=== PATIENT | male | born 1995 | race Caucasian/White ===

== ENCOUNTER 2021-11-18 16:01 | Outpatient (CLI) | payer OTHER, SELFPAY ==
--- NOTE | ~2021-11-18 | MR_ITS ---
EXAMINATION: MR knee RT wo con DATE: 11/18/2021 17:16 INDICATION: Unspecified injury of right lower leg, initial encounter. Medial right knee pain. TECHNIQUE: Magnetic resonance imaging (MRI) of the right knee was performed without intravenous contr ast. Sequences included axial PD-weighted FS FSE, coronal PD-weighted FSE and PD-weighted FS FSE, sag ittal PD-weighted FSE, and sagittal T2-weighted FS FSE. COMPARISON: Right knee MRI 03/13/2014 FINDINGS: Medial compartment: There is a complex tear involving body and posterior horn of medial meniscus with extrusion of the landen dy segment. There is shallow partial-thickness cartilage loss of tibial condyle and femoral condyle. Tiny osteophytes are noted. Lateral compartment: Lateral meniscus is normal. There is shallow partial-thickness cartilage loss of femoral condyle, wor st at the posterior articular surface. There is cartilage surface irregularity of tibial condyle. Tin y osteophytes are noted. Patellofemoral compartment: Patellar cartilage is normal. Trochlear cartilage is normal. There are tiny osteophytes. Ligaments and tendons: There is a complete tear of anterior cruciate ligament. Posterior cruciate ligament is normal. There are changes of prior sprains of medial collateral ligament and fibular collateral ligament characteri zed by thickening and increased signal intensity proximally. There is mild patellar tendinopathy. Fluid: There is a small knee joint effusion. There is a small Peralta's cyst. IMPRESSION: 1. Complete tear of anterior cruciate ligament. 2. Mild chondrosis of medial and lateral compartments. 3. Complex tear of medial meniscus. 4. Small knee joint effusion. 5. Small Peralta's cyst. Reviewed, dictated and finalized at location A.
== END 2021-11-18 16:02 ==
PROVIDERS: Visit Provider Orthopaedic Surgery
DX: M25.462 Effusion, left knee (principal); M25.461 Effusion, right knee; M71.21 Synovial cyst of popliteal space [Baker], right knee; S83.231A Complex tear of medial meniscus, current injury, right knee, initial encounter; S83.511A Sprain of anterior cruciate ligament of right knee, initial encounter; X58.XXXA Exposure to other specified factors, initial encounter
CPT/HCPCS: 73721

== ENCOUNTER 2022-05-03 01:02 | Day surgery (SDC) | payer OTHER, SELFPAY ==
[2022-03-17 15:50] VITALS: BMI 36.5
--- NOTE | 2022-03-17 16:04 | PC.NURSE ---
Report to the Outpatient Waiting Room, entrance under the green pavilion located off [facility], at time 0830 on date 03/30/22. OR Time: 1030. Time changes happen often and if your time is changed the preop area will call you the afternoon before. - You and your visitor will be asked to self-screen and do not enter if you have any COVID symptoms. - Only one visitor and NO children visitors are allowed at this time. - The patient visitor is requested to leave or wait in car when not with patient due to restrictions. - A mask is required within the hospital. Patients may have clear liquids (water, carbonated beverages, clear teas, apple juice) until 3 hours prior to surgery with a maximum of 20 ounces. - No food from midnight until time of surgery Take the following medications with a SIP of water the morning of surgery: LORAZEPAM IF NEEDED Medications to discontinue per physician: N/A Date to take last dose: N/A Please no make-up, nail malay, hairspray, perfume, deodorant, or body powder the day of surgery. No jewelry (including any body piercings) or valuables the day of surgery, leave them at home. Please take a shower or bath the night before, or the morning of, surgery with an antibacterial soap. Wear comfortable, loose fitting clothing. - Jewelry must be removed prior to entering the operating room. Rings and piercings that are not removed may be cut off. - The hospital will not accept responsibility for valuables. - Please leave all valuables, including medications, at home the day of surgery. If you are going home after surgery, a licensed [employer] driver must drive you home. - NO public transportation without another adult. - We recommend that an adult stay with you for 24 hours following discharge. - We also recommend that you do not drive, make important decision, drink alcoholic beverages, or take any drugs that were not prescribed by your health care provider for at least 24 hours after your discharge time. Follow any additional instructions given to you from your surgeon. If you or anyone in your household have experienced Covid symptoms in the past week, please notify your surgeon or the nurse liaison at the phone number below for possible testing. Telephone instructions given to PT - MARGARET CERDA and asked if any additional questions and then verbalized understanding. Patient advised to call surgeon office or pre surgery nurse liaison [phone] if any additional questions.
[2022-04-28 15:13] VITALS: BMI 36.5
--- NOTE | 2022-04-28 15:17 | PC.NURSE ---
Report to the Outpatient Waiting Room, entrance under the green pavilion located off [facility], at time 0830 on date 05/03/22. Planned Procedure Time: 1030. Time changes happen often and if your time is changed the preop area will call you the afternoon before. - You and your visitor will be asked to self-screen and do not enter if you have any COVID symptoms. - We encourage only one visitor and NO visitors under age 16 are allowed at this time. Your visitor will receive communication by the phone number that is given day of service. - The patient visitor is requested to social distance or may leave the building when not with patient due to restrictions. - A mask is OPTIONAL within the hospital. Patients may have clear liquids (water, carbonated beverages, clear teas, apple juice) until 3 hours prior to surgery with a maximum of 20 ounces. - No food from midnight until time of surgery Take the following medications with a SIP of water the morning of surgery: ATIVAN IF NEEDED, FLUOXETINE Medications to discontinue per physician: N/A Date to take last dose: N/A Please no make-up, nail australian, hairspray, perfume, deodorant, or body powder the day of surgery. No jewelry (including any body piercings) or valuables the day of surgery, leave them at home. Please take a shower or bath the night before, or the morning of, surgery with an antibacterial soap. Wear comfortable, loose fitting clothing. - Jewelry must be removed prior to entering the operating room. Rings and piercings that are not removed may be cut off. - The hospital will not accept responsibility for valuables. - Please leave all valuables, including medications, at home the day of surgery. If you are going home after surgery, a licensed patient transportation driver must drive you home. - NO public transportation without another adult. - We recommend that an adult stay with you for 24 hours following discharge. - We also recommend that you do not drive, make important decision, drink alcoholic beverages, or take any drugs that were not prescribed by your health care provider for at least 24 hours after your discharge time. Follow any additional instructions given to you from your surgeon. If you or anyone in your household have experienced Covid symptoms in the past week, please notify your surgeon or the nurse liaison at the phone number below for possible testing. Telephone instructions given to PT - MARGARET CERDA and asked if any additional questions and then verbalized understanding. Patient advised to call surgeon office or pre surgery nurse liaison [phone] if any additional questions.
[2022-05-03] VITALS (9 sets, daily range): BP systolic 139–164; BP diastolic 69–91; PULSE 84–121; RESP 12–20; TEMP 36.7–37.3; O2SAT 92–100
--- NOTE | 2022-05-03 07:15 | WPDHPUPDATE1 ---
History and Physical Update Update Date/Time: 05/03/22 07:15 History and Physical has been reviewed, including an updated exam of the patient. There are NO changes in the patient's condition. Risks, benefits, and alternatives have been discussed and questions answered. Patient agrees to proceed with procedure.
[2022-05-03] MEDS: LACTATED RINGERS 1,000 ML 30 ML IV CONT ×2 (08:50→14:13)
[2022-05-03] MEDS: CELECOXIB 200 MG CAPSULE PO (08:50)
[2022-05-03] MEDS: ACETAMINOPHEN 500 MG TABLET 1000 MG PO (08:50)
--- NOTE | 2022-05-03 09:29 | WPDANESEPPF ---
Anes - Initial Pre Proc Eval Procedure: Operation Date: 05/03/22 10:30 Proposed Procedures p Right Knee Anterior Cruciate Ligament Reconstruction, Possible Medial Meniscus Repair - Alf Flowers MD Date/Time: 05/03/22 09:29 Surgeon: Alf Flowers MD Pre Op Diagnosis: Rt Knee ACL Rupture, Medial Meniscus tear Patient Data Age: 26 Gender: M Height: 1.73 m Weight: 113.7 kg Last Vital Signs Temp 36.7 C 05/03/22 08:52 Pulse 84 05/03/22 08:52 Resp 14 05/03/22 08:52 BP 148/85 H 05/03/22 08:52 Pulse Ox 100 05/03/22 08:52 O2 Del Method Room Air 05/03/22 08:52 Allergies Allergy/AdvReac Type Severity Reaction Status Date / Time No Known Drug Allergies Allergy Unknown Unknown Verified 05/03/22 08:58 Home Medications Medication Instructions Recorded Confirmed Type lisinopril 20 mg tablet 20 mg PO DAILY 10/14/21 04/28/22 History lorazepam 1 mg tablet (Ativan) 1 mg PO DAILY PRN Anxiety 10/14/21 04/28/22 History chlorhexidine gluconate 4 % 1 applic topical ONCE #237 mL 04/12/22 04/28/22 Rx topical liquid (Hibiclens) fluoxetine 20 mg capsule 20 mg PO DAILY 04/28/22 04/28/22 History Patient hx anesthesia problems: none Family hx anesthesia problems: none Results Review: All pre-operative results and documents have been reviewed as part of the pre-operative evaluation. [facility] Past Medical History Medical History (Updated 05/03/22 @ 09:30 by Hong Acuna MD) ACL tear HTN (hypertension) Knee Injury Medial meniscus tear Obesity Surgical History Surgical History Hx of arthroscopy of right knee 2014 Family History Family History Other Diabetes mellitus Family history of arthritis Hypertension Social History Social History Smoking status: Never smoker Alcohol intake: current Drinks per week: 5 Substance use: never Substance use type: does not use Living arrangements: with family Additional occupation/education comments: [employer] Gender identity (if verbalized by the patient): Male Spiritual care concerns: No Anes - Eval Final PreProcedure Day of Procedure 05/03/22 09:29 Patient weight: obese Heart: regular rate and rhythm Lungs: clear to auscultation Airway: Mallampati scale class 1 Neurological: alert and oriented Last oral intake: >/= 8 hours ASA classification: II Emergent: no Anesthetic plan: proceed Anesthesia type and monitoring: general LMA and standard monitoring Results Review: All pre-operative results and documents have been reviewed as part of the pre-operative evaluation. Informed Consent: The patient's anesthetic plan and its attendant risks and benefits were discussed with the patient/family/POA. Questions were solicited and answers provided to the satisfaction of the patient/family/POA.
--- NOTE | 2022-05-03 10:20 | PM.IMHP ---
H&P: HPI History of Present Illness Date/Time: 05/03/22 10:20 Chief Complaint: Pt presents with Right knee pain that occurred when he was ascending a set of stairs, at work, and tripped, twisting his knee. DOI 09/24/2021 ([id number])He went to the ER and underwent xray and a CT. He was then dx w/ a slight lateral subluxation of the patella. He was placed in an immobilizer and instructed to remain NWB w/ crutches, which he has complied with. There is an effusion present at the anterior right knee. Diffuse pain present. He is taking OTC medication for his pain. MRI completed 11/18/21. Pt is here to discuss Right ACL repair with poss medial meniscus repair on 03/30/[address] Flowers. 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 [employer] Date of injury/condition: 09/24/21 Current symptoms: Reports catching, instability, stiffness and excessive kneecap motion Location: anterior Character: constant and worsens w/ weight bearing Onset: 1-3 months Exacerbated by: direct pressure, weight bearing, kneeling, squatting, stairs, running, rotational activities and prolonged activity Previous treatments: Anti-inflammatory meds: right, Braces: right, Crutches: right, Ice: right and Elevation: right Improved by treatment/surgery: too soon to tell Review of Systems Review of Systems: All systems reviewed & are unremarkable except as noted in HPI and below PMFSH Past Medical History Medical History ACL tear HTN (hypertension) Knee Injury Medial meniscus tear Obesity Surgical History Surgical History Hx of arthroscopy of right knee 2013 Family History Family History Other Diabetes mellitus Family history of arthritis Hypertension Social History Social History Smoking status: Never smoker Alcohol intake: current Drinks per week: 5 Substance use: never Substance use type: does not use Living arrangements: with family Additional occupation/education comments: [employer] Gender identity (if verbalized by the patient): Male Spiritual care concerns: No Meds Home Medications and Allergies Home Medications Medication Instructions Recorded Confirmed Type lisinopril 20 mg tablet 20 mg PO DAILY 10/14/21 04/28/22 History lorazepam 1 mg tablet (Ativan) 1 mg PO DAILY PRN Anxiety 10/14/21 04/28/22 History chlorhexidine gluconate 4 % 1 applic topical ONCE #237 mL 04/12/22 04/28/22 Rx topical liquid (Hibiclens) fluoxetine 20 mg capsule 20 mg PO DAILY 04/28/22 04/28/22 History Allergies Allergy/AdvReac Type Severity Reaction Status Date / Time No Known Drug Allergies Allergy Unknown Unknown Verified 05/03/22 08:58 Vital Signs Vital Signs - 24 hr 05/03/22 08:52 Temperature 36.7 C Pulse Rate 84 Respiratory Rate 14 Blood Pressure 148/85 H Pulse Oximetry 100 Oxygen Delivery Room Air Exam Const: General: cooperative, healthy appearing, comfortable, no acute distress and well developed HENMT: Head: normal to inspection and No palpable skull fracture present Eyes: General: appearance normal, both eyes and all related structures Neck: Neck: normal visual inspection and full ROM Chest: Chest palpation & inspection: normal inspection of the chest Resp: Auscultation: clear to auscultation bilaterally Cardio: Rate: regular rate Heart sounds: S1 normal heart sound present and S2 normal heart sound present GI: GI Palp: Yes Soft to palpation and No Tenderness to palpation present (GI) Skin: General skin exam: normal color and no rashes or lesions noted Extrem: Right lower extremity: knee Details: abnormal to inspection, tenderness, swelling, abnormal ROM Details: pain with active ROM during and pain with passive ROM during, knee ligament exam abnormal Details: anterior drawer test normal Details: laxit
[2022-05-03] MEDS: ceFAZolin 2 GM/D5W 50 ML 2 GM/50 ML BAG IVPB (10:55)
--- NOTE | 2022-05-03 13:09 | SUR.OPER ---
ARTHREX IMPLANT RIGHT KNEE SECONDARY FIXATION BIOCOMPOSITE SWIVELOCK EXP 2025-08-30, FAST THREAD BIOCOMPOSITE INTERFERENCE SCREW [id number] EXP 2025-10-30 LOT [id number]
--- NOTE | 2022-05-03 13:25 | SUR.OPER ---
RIGHT KNEE BIOCOMPOSITE SWIVEL LOCK c WITH FIBERWIRE 2025-08-02 LOT [id number] IMPLANT IN. SECONDARY FIXATIN WITH BIOCOMPOSITE SWIVELOCK #[id number] WASTED
[2022-05-03] MEDS: BUPIVACAINE HCL 0.5% PF 30 ML VIAL INFILTRATE (13:43)
--- NOTE | 2022-05-03 14:25 | P.OP_ITS ---
Procedure Note - Detailed Date of Procedure 05/03/22 Pre-op Diagnosis Rt Knee ACL Rupture, Medial Meniscus tear Post-op Diagnosis Same Procedure Performed LEFT ACL RECONSTRUCTION Surgeon Alf Flowers MD Anesthesia General Description of Procedure PATIENT WAS TAKEN TO THE OR. GENERAL ANESTHESIA WAS INDUCED. THE RIGHT KNEE WAS TAKEN THROUGH A RANGE OF MOTION AND A PIVOT SHIFT TEST WAS PREFORMED AND THIS WAS POSITIVE. A LACHMANS TEST AND ANTERIOR DRAWER TESTS WERE ALSO PREFORMED AND BOTH SHOWED LAXITY OF THE ACL. THE RIGHT LEG WAS PREPPED AND DRAPED STERILE. TROCARS WERE PLACED IN THE USUAL FASHION. CAMERA WAS INTRODUCED. THERE WAS NO CHONDROMALACIA TO THE PATELLA FEMORAL JOINT. THE MEDIAL COMPARTMENT SHOWED MILD CHONDROMALACIA TO THE MED FEMORAL CONDYLE. THER WAS A COMPLEX TEAR TO THE MEDIAL MENISCUS. A MEDIAL PORTAL WAS ESTABLISHED. THE MEDIAL MENISCUS TEAR WAS NOT REPAIRABLE. THE TEAR WAS RESECTED DOWN TO A SMOOTH BASE. ABOUT 20% OF THE MENISCUS WAS REMOVED. NEXT THE ACL WAS IDENTIFIED AND FOUND TO BE COMPLETELY TORN. THE LATERAL MENISCUS WAS NOT TORN. THE LATERAL COMPARTMENT HAD NO CHONDROMALACIA. THE ACL REMNANTS WERE THEN THEN DEBRIDED UNTIL THE PCL WAS IDENTIFIED AND THE SUPERIOR LATERAL NOTCH WAS IDENTIFIED. A NOTCH PLASTY WAS PREFORMED UNTIL THE OVER THE TOP POSITION WAS SEEN. A MEDIAL INCISION WAS MADE MEDIAL TO THE TIBIAL TUBERCLE AND DISSECTION CONTINUED DOWN TO BONE. A TIBIAL ACL GUIDE WAS PLACE UP AGAINST THE PCL AND WAS SET AT 55 DEG POSITION. A GUIDE PIN WAS DRILLED THROUGH THE GUIDE EXITING JUST ANTERIOR TO THE PCL STUMP. A 10 MM TIBIAL TUNNEL WAS DRILLED. A #7 BACK WALL GUIDE WAS PLACED OVER THE GUIDE PIN AT THE 11 O'CLOCK POSITION ON THE FEMUR. A 10 MM FEMORAL TUNNEL WAS DRILLED TO 25 MM. AN ALLOGRAFT ATTACHED TO A TIGHT ROPE SYSTEM. THE ALLOGRAFT WAS PASSED THROUGH THE TIBIAL AND FEMORAL TUNNELS. THE TIGHT ROPE WAS THEN TIGHTENED AND THE ENDO BUTTON WAS SECURED OVER THE SUPERIOR LATERAL FEMORAL CORTEX. WITH THE KNEE AT 30 DEG OF FLEXION AND TENSION ON THE TIBIAL SIDE OF THE ALLOGRAFT, A 25 MM BY 10 MM TISSUE INTERFERENCE SCREW WAS PLACED IN THE TIBIAL TUNNEL OVER A GUIDE WIRE. THE SCREW HAD AN EXCELLENT BITE. THE KNEE WAS TAKEN THROUGH A RANGE OF MOTION AND THE ACL WAS VERY STABLE. A SWIVEL LOCK SYSTEM WAS THEN PLACED ADJACENT TO THE TIBIAL TUNNEL A BACKUP TO SECURING THE GRAFT. A DIRECT VISUALIZED ANTERIOR DRAWER TEST PREFORMED AND THE GRAFT WAS STABLE. THE PATELLA TRACKED WITHOUT TILT. THE INSTRUMENTS WERE REMOVED AFTER THOROUGH IRRIGATION OF THE KNEE JOINT. THE WOUNDS WERE WASHED. THE TROCAR WOUNDS WERE APPROXIMATED WITH 4-0 NYLON. THE TIBIA WOUND WAS APPROXIMATED WITH 0 VICRYL, 2- 0 VICRYL AND 3-0 QUILL SUTURE. THE WOUNDS WERE WASHED. DERMABOND AND THEN A STERILE DRESSING WAS APPLIED. A BRACE WAS PLACED.PATIENT WAS EXTUBATED. Estimated Blood Loss -50.0 Drains No Complications No immediate complications Condition Stable Disposition PACU
--- NOTE | 2022-05-03 14:41 | WPDANESPNB ---
Anes - Peripheral Nerve Block Date/Time: 05/03/22 14:41 I have discussed with the patient/family/POA the placement of a peripheral nerve block for post-operative pain management, including associated risks, benefits, complications, and side effects. Alternative methods of post-operative analgesia were detailed. Questions were solicited and answers provided to the satisfaction of the patient/family/POA. Time-Out: A pre-procedural Time-Out was completed immediately before starting the procedure and confirmed: Patient Identification, Site, Procedure, Patient Position and the Availability of Requisite Equipment. Clinical Indications: Acute post-operative pain management requested by the operative surgeon. Nerve Block Insertion Note Anes-nerve block: femoral right Patient position: supine Skin prep: chlorhexidine Needle: 22 gauge, stimulating, insulated echogenic needle. Needle length: 80 mm Technique: nerve stimulation lost at (mA) (0.3) Injectate: dexamethasone (mg) (4) and bupivacaine 0.25% with epi 5 mcg/ml (30ml) Observations: tolerated well Complications: none Procedure start time:: 1435 Procedure end time:: 1440
[2022-05-03] MEDS: oxyCODONE HCL (*CRX) 5 MG TAB IR PO (15:26)
--- NOTE | 2022-05-03 16:21 | SUR.PHASEII ---
Vital signs stable, patient dressed. Awaiting Dr. Dunne to see patient before discharge per Dr. Dunne's request.
== END 2022-05-03 16:36 | disposition home or self-care (01) ==
PROVIDERS: Visit Provider Orthopaedic Surgery
PROC: (CPT 29888; principal; 2022-05-03 10:30)
DX: S83.511A Sprain of anterior cruciate ligament of right knee, initial encounter (principal); S83.231A Complex tear of medial meniscus, current injury, right knee, initial encounter; X50.0XXA Overexertion from strenuous movement or load, initial encounter; G89.18 Other acute postprocedural pain; I10 Essential (primary) hypertension; E66.9 Obesity, unspecified; Z68.38 Body mass index [BMI] 38.0-38.9, adult
CPT/HCPCS: 29881; 29888; 64447; A9270; C1713; J0690; J1100; J1170; J1885; J2250; J2405; J2704; J3010; J7120; L1830